=== PATIENT | female | born 1965 | race Caucasian/White ===

== ENCOUNTER 2019-05-25 07:56 | Emergency (ER) | payer OTHER ==
[~2019-05-25] VITALS: Ht 157.5 cm; Wt 54.4 kg
[2019-05-25 08:00] VITALS: BP 155/80
--- NOTE | 2019-05-25 08:24 | PHYS DOC ---
Past Medical History Past Medical History: No Pertinent History Past Surgical History: , Hysterectomy, Tonsillectomy Alcohol Use: Occasionally Drug Use: None Adult General Chief Complaint Chief Complaint: KNEE INJURY HPI HPI Patient is a 54 year old female who presents to the ED today complaining of 10 out of 10 right knee pain that began yesterday with swelling. Patient denies any injury. Patient states the pain is worse on range of motion. Denies anything specifically in relieving the pain. Describes the pain as sharp and intermittent Review of Systems Review of Systems Constitutional: Denies fever or chills [] Musculoskeletal: Reports right knee pain Integument: Denies rash or skin lesions [] Neurologic: Denies headache, focal weakness or sensory changes [] All other systems were reviewed and found to be within normal limits, except as documented in this note. Allergies Allergies Allergies Coded Allergies Type Severity Reaction Last Updated Verified No Known Drug Allergies 05/25/19 No Physical Exam Physical Exam Constitutional: Well developed, well nourished, no acute distress, non-toxic appearance. [] Skin: Warm, dry, no erythema, no rash. [] Back: No tenderness, no CVA tenderness. [] Extremities: Right knee with no obvious deformity. Trace amount of soft tissue swelling noted on the anterior aspect of the knee. No tenderness on palpation. Slightly Limited range of motion to the knee due to pain. +2 right pedal pulse. Cap refill less than 2 seconds the right lower extremity. Sensation intact to the right lower extremity. Neurologic: Alert and oriented X 3, normal motor function, normal sensory function, no focal deficits noted. [] Psychologic: Affect normal, judgement normal, mood normal. [] Current Patient Data Vital Signs Vital Signs Date Time Temp Pulse Resp B/P (MAP) Pulse Ox O2 Delivery O2 Flow Rate FiO2 05/25/19 08:00 97.8 84 16 155/80 (105) 99 Room Air 97.8 EKG EKG [] Radiology/Procedures Radiology/Procedures []PROCEDURE: KNEE RIGHT 4V 4 view right knee study Clinical indications: Right knee pain FINDINGS: No knee joint effusion is seen radiographically. No acute fracture or dislocation or lytic process is evident. There is mild degenerative spurring and joint space narrowing of the medial tibiofemoral joint compartment. The patella is normally aligned. Mild degenerative spurring of the patellofemoral joint compartment is seen. IMPRESSION: Mild primary degenerative osteoarthritis. No acute fracture. Electronically signed by: Lazaro Mota MD (05/25/2019 9:05 AM) [id number] DICTATED and SIGNED BY: LAZARO MOTA MD DATE: 05/25/19904 Course & Med Decision Making Course & Med Decision Making Pertinent Labs and Imaging studies reviewed. (See chart for details) This is a 54-year-old female patient presented to the ED today with right knee pain, no known injury. Right knee x-rays interpreted by radiologist are negative for any acute findings, noted for DJD. Emmanuel bandage applied to the right knee by the human performance technologist, neurovascular exam is intact. Ice elevation encouraged. Discharged with Medrol Dosepak and diclofenac. F/u with Ortho. Dragon Disclaimer Dragon Disclaimer This electronic medical record was generated, in whole or in part, using a voice recognition dictation system. Departure Departure Impression: Primary Impression: Right knee pain Additional Impression: Right knee DJD Disposition: HOME, SELF-CARE Condition: STABLE Referrals: NO PCP (PCP) DANIEL JOLLY MD Follow up in 1-2 weeks Patient Instructions: Arthritis, Nonspecific, [id number] Additional Instructions: You were evaluated in the emergency room for right knee pain and noted to have arthritis in the knee. Use the Emmanuel bandage provided as tolerated and needed. Try to ice and elevate the knee. Take the prescribed medications as ordered. Please follow-up with the provided orthopedic doctor in the next 1-2 weeks. Scripts Methylprednisolone (MEDROL) 4 Mg Tab.ds.pk 1 PKG PO UD, #1 PKG Prov: TIMMY WINTERS MARIAM 05/25/19 Diclofenac Potassium (DICLOFENAC POTASSIUM) 50 Mg Tablet 1 TAB PO BID, #20 TAB 0 Refills Prov: TIMMY WINTERS MARIAM 05/25/19 Problem Qualifiers Primary Impression: Right knee pain Chronicity: acute Qualified Codes: M25.561 - Pain in right knee Additional Impression: Right knee DJD Osteoarthritis type: unspecified Qualified Codes: M17.11 - Unilateral primary osteoarthritis, right knee TIMMY WINTERS MARIAM May 25, 2019 08:24
--- NOTE | 2019-05-25 09:08 | RAD ---
4 view right knee study Clinical indications: Right knee pain FINDINGS: No knee joint effusion is seen radiographically. No acute fracture or dislocation or lytic process is evident. There is mild degenerative spurring and joint space narrowing of the medial tibiofemoral joint compartment. The patella is normally aligned. Mild degenerative spurring of the patellofemoral joint compartment is seen. IMPRESSION: Mild primary degenerative osteoarthritis. No acute fracture. Electronically signed by: Russell Mota MD (05/25/2019 9:05 AM) [id number]
[2019-05-25] MEDS ORDERED: METH4TAB2 PO (09:21)
[2019-05-25] MEDS ORDERED: DICL50TA2 PO (09:21)
== END 2019-05-25 09:35 | disposition home or self-care (01) ==
LOC: ER 07:56
DX: M17.11 Unilateral primary osteoarthritis, right knee (principal); Z98.890 Other specified postprocedural states; Z90.710 Acquired absence of both cervix and uterus; Z90.89 Acquired absence of other organs
CPT/HCPCS: 73564; 99284